=== PATIENT | male | born 1995 ===

== ENCOUNTER 2017-10-28 15:50 | Observation (INO) | payer OTHER ==
--- NOTE | 2017-10-28 16:52 | C.PDOC ---
History Of Present Illness 21 y/o male c/o throat pain, change in voice, fever, difficulty swallowing x 1 day. HPI: Influenza Time Seen by Provider: 10/28/17 16:45 Chief Complaint: ENT Problem History Per: Patient Exam Limitations: no limitations Onset/Duration Of Symptoms: Days (1) Symptoms include: fever, sore throat. denies: difficulty breathing Sick Contacts (Context): None Past Medical History Reviewed: Historical Data, Nursing Documentation, Vital Signs Vital Signs: Last Vital Signs Temp 100.8 F H 10/28/17 16:25 Pulse 116 H 10/28/17 16:25 Resp 18 10/28/17 16:25 BP 128/71 10/28/17 16:25 Pulse Ox 100 10/28/17 16:25 - Medical History PMH: No Chronic Diseases Family History: States: Unknown Family Hx - Social History Hx Alcohol Use: No Hx Substance Use: No - Immunization History Hx Tetanus Toxoid Vaccination: No Hx Influenza Vaccination: No Hx Pneumococcal Vaccination: No Review Of Systems Constitutional: Positive for: Fever, Chills, Other (myalgia) ENT: Positive for: Throat Pain. Negative for: Ear Pain, Nose Discharge Respiratory: Negative for: Cough Gastrointestinal: Negative for: Nausea, Vomiting, Abdominal Pain Physical Exam - Physical Exam Appears: Non-toxic, Other (uncomfortable) Skin: Warm, Dry Head: Atraumatic, Normacephalic Eye(s): bilateral: Normal Inspection Nose: No Discharge Oral Mucosa: Moist Tongue: Normal Appearing Lips: Normal Appearing Throat: Erythema, No Exudate, Other (left tonsil markedly enlarged, no exudate noted, ?lpta, uvula midline. ) Neck: No Trachea Deviated, Supple Lymphatic: Adenopathy (left tender submandibular nodes. ) Cardiovascular: Rhythm Regular, No Murmur Respiratory: No Decreased Breath Sounds, No Wheezing Medical Decision Making Medical Decision Making: sore throat, fever, change in voice, left enlarged tonsils- plan: labs, ivf, antipyetic, decadron. ct scan neck. rapiid strep 830 pm +tonsillitis on ct scan, pt feeling somewhat better, left tonsil still touching uvula, pt still with ot potasto voice. discussed with Dr Montes, requesting admit to medicine. Discussed with Dr Amin, will put on his service. - Laboratory Results Result Diagrams: 10/28/17 17:51 10/28/17 17:51 - ECG O2 Sat by Pulse Oximetry: 100 Disposition Discussed With DrIlana: Jak Amin - Disposition Disposition Time: 20:46 Condition: STABLE Forms: [facility] (Somali) - Clinical Impression Clinical Impression: Tonsillitis with exudate
[2017-10-28] MEDS ORDERED: Sodium Chloride 0.9% 1,000 ML IV ONE (17:22)
[2017-10-28] MEDS ORDERED: Dexamethasone 4 mg/1 ml ONE (17:28)
[2017-10-28] MEDS ORDERED: Sodium Chloride 0.9% 1,000 ML ONE (17:29)
[2017-10-28 17:55] LABS: BASO # 0.1 K/uL (0.0-0.2); BASO % 0.5 % (0.0-2.0); EOS % 0.1 % (0.0-4.0); HEMOGLOBIN 14.5 g/dL (12.0-18.0); LYMPH # 1.5 K/uL (1.0-4.3); LYMPH % 7.5 % (20.0-40.0); MEAN CELL VOLUME 81.8 fL (80.0-94.0); MEAN CORPUSCULAR HEMOGLOBIN 28.4 pg (27.0-31.0); MEAN CORPUSCULAR HGB CONC 34.7 g/dL (33.0-37.0); MEAN PLATELET VOLUME 7.7 fL (7.2-11.7); MONO # 1.2 K/uL (0.0-0.8); MONO % 6.2 % (0.0-10.0); NEUT # 16.9 K/uL (1.8-7.0); NEUT % 85.7 % (50.0-75.0); PLATELET COUNT 259 K/uL (130-400); RBC 5.11 Mil/uL (4.40-5.90); RED CELL DISTRIBUTION WIDTH 13.6 % (11.5-14.5); WHITE BLOOD COUNT 19.7 K/uL (4.8-10.8)
[2017-10-28 18:06] LABS: ALBUMIN 4.5 g/dL (3.5-5.0); ALT/SGPT 32 U/L (21-72); AST/SGOT 19 U/L (17-59); BLOOD UREA NITROGEN 9 mg/dL (9-20); CALCIUM 9.7 mg/dl (8.6-10.4); GFR AFRICAN-AMERICAN > 60; GFR NON-AFRICAN AMERICAN > 60
[2017-10-28] MEDS ORDERED: Iodixanol 320 MG/ML 100 ML BOTTLE IV ONE (18:40)
[2017-10-28] MEDS ORDERED: Clindamycin 600mg/50ml NS 600 MG/50 ML BAG IVPB ONE (19:03)
[2017-10-28 19:43] LABS: BANDS 3 % (0-2); LYMPHOCYTE 12 % (20-40); MONOCYTE 5 % (0-10); NEUTROPHIL 80 % (50-75); PLATELET ESTIMATE NORMAL (NORMAL); TOTAL CELLS COUNTED 100
--- NOTE | 2017-10-28 19:52 | CT ---
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 All CT scans at this facility use one or more dose reduction techniques, viz.: automated exposure control; ma/kV adjustment per patient size (including targeted exams where dose is matched to indication; i.e. head); or iterative reconstruction technique. Coronal and sagittal reformatted images were created and reviewed. CONTRAST: 100 mL of visipaque 320 administered intravenously. COMPARISON: No relevant prior studies available. FINDINGS: NASOPHARYNX: Mild, symmetric enlargement of the adenoidal/nasopharyngeal tonsils. This could be due to tonsillitis or tonsillar hypertrophy. No evidence of a peritonsillar abscess. OROPHARYNX: Best seen on image 46 of series 601, there is enlargement and heterogeneous enhancement of the left palatine tonsil, highly suspicious for tonsillitis. This causes swelling of the left parapharyngeal soft tissues associated with mild narrowing and rightward displacement of the oropharyngeal airway. There is no focal, measurable collection seen to suggest a focal peritonsillar abscess. HYPOPHARYNX: Demonstrates mild left-sided soft tissue swelling, most likely representing extension of edema inferiorly from the left palatine tonsillitis. This effaces the left piriform sinus. The swelling abuts the epiglottis on the left, however, there is no swelling of the epiglottis itself to suggest acute epiglottitis. LARYNX: No acute abnormality of the vocal cords identified. TRACHEA: Visualized portions of the trachea appear patent. RETROPHARYNGEAL SPACE: No evidence of prevertebral/retropharyngeal fluid or fluid collection. SUBMANDIBULAR/PAROTID GLANDS: No acute abnormality of the submandibular or parotid glands identified. THYROID: No acute abnormality of the thyroid gland identified. BONES/JOINTS: No acute fractures or other acute bony abnormality noted. SOFT TISSUES: . No findings to suggest significant cellulitis of the soft tissues. No evidence of soft tissue gas. VASCULATURE: No acute abnormality of the major neck vessels seen. LYMPH NODES: Multiple small lymph nodes seen in the left neck, mainly in the jugulodigastric chain region, none appearing pathologically enlarged. These are most likely reactive in etiology, secondary to the suspected left-sided tonsillitis. No evidence of diffuse pathologic lymphadenopathy. ESOPHAGUS: No acute abnormality of the upper esophagus identified. LUNG APICES: Lung apices appear clear. IMPRESSION: - Enlargement of the left palatine tonsils, suspicious for tonsillitis. The swelling from the tonsillitis extends inferiorly into the left hypopharynx. No evidence of peritonsillar abscess or epiglottitis. - Enlarged adenoidal/nasopharyngeal tonsils. This could be due to tonsillitis or tonsillar hypertrophy. - See above for remaining findings.
--- NOTE | 2017-10-28 22:28 | CP.PCM.HP ---
<Cesar Solo Dia - Last Filed: 10/28/17 23:33> History of Present Illness - History of Present Illness History of Present Illness: CC: throat pain and swelling HPI: Patient is a 21 year old male who presents for throat pain, swelling, and difficulty breathing. He states that last night, he began to feel a little bit of pain and swelling in his throat, and felt that he was having trouble swallowing his saliva. He tried drinking tea and using [place] cough drops without improvement; he only felt that the saliva was staying in his throat. He went to sleep and woke up today feeling sweaty, with worse throat pain and swelling, lots of phlegm in his throat, the inability to swallow, difficulty speaking, and difficulty swallowing. He describes the feeling of swallowing as trying to put a "pebble in a straw." Patient's mother at bedside states that patient's voice did not sound normal. Throat pain is described as left sided, throbbing/burning, constant, exacerbated by swallowing, 11/10 at worst and 7/10 right now. He denies any relieving factors except the medicine given in the ED. Patient has not eaten solid food since these symptoms started. He is able to tolerate water/juice but feels that the liquid is slow to go down and he has pain when he swallows. He denies fever (did not check temperature at home), chills, cough, the sensation of oozing in his throat, sick contacts. Patient has no history of similar symptoms. Patient had a mild headache earlier today that resolved. Otherwise, patient denies dizziness, lightheadedness, changes in vision/hearing, chest pain, palpitations, abdominal pain, nausea, vomiting, diarrhea, constipation (last BM this morning, nonbloody and nonmelanotic), dysuria, urinary frequency, leg pain , leg swelling, back pain, rashes, bruises, bleeding, recent travel, weight changes, appetite changes. 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 absent: Chills, Fever - EENT Eyes: absent: Change in Vision Ears: absent: Decreased Hearing, Ear Discharge, Ear Pain Nose/Mouth/Throat: Change in Voice, Dysphagia, Sore Throat, Throat Swelling - Cardiovascular Cardiovascular: absent: Chest Pain, Leg Edema, Palpitations, Pedal Edema - Respiratory Respiratory: Dyspnea. absent: Cough - Gastrointestinal Gastrointestinal: absent: Abdominal Pain, Change in Stool Character, Constipation, Diarrhea, Hematochezia, Loose Stools, Melena - Genitourinary Genitourinary: absent: Difficulty Urinating, Dysuria, Urinary Frequency - Musculoskeletal Musculoskeletal: absent: Muscle Weakness, Myalgias - Integumentary Integumentary: absent: Rash, Unusual Bruising - Neurological Neurological: Headaches. absent: Dizziness - Psychiatric Psychiatric: absent: Behavioral Changes - Endocrine Endocrine: absent: Fatigue, Palpitations - Hematologic/Lymphatic Hematologic: absent: Easy Bleeding, Easy Bruising Past Patient History - Past Social History Smoking Status: Never Smoked - PSYCHIATRIC Hx Substance Use: No - SURGICAL HISTORY Hx Surgeries: No Meds Allergies/Adverse Reactions: Allergies Allergy/AdvReac Type Severity Reaction Status Date / Time No Known Allergies Allergy Unverified 10/28/17 16:28 Physical Exam - Constitutional Appears: Well, No Acute Distress Additional comments: Speaking in complete sentences - Head Exam Head Exam: ATRAUMATIC, NORMAL INSPECTION - Eye Exam Eye Exam: EOMI Pupil Exam: PERRL - ENT Exam ENT Exam: Mucous Membranes Moist Additional comments: Unable to visualize bilateral TMs due to cerumen Nasal septum and nasal turbinates appeared normal, no purulent nasal discharge noted No tenderness to maxillary and frontal sinus palpation Dentition normal Tongue midline; Uvula deviated slightly to the right, with no purulence observed ; Mildly enlarged left tonsil with (+) minimal erythema - no exudate noted Tender lymph node at angle of the jaw - Neck Exam Neck exam: Positive for: Tenderness Additional comments: Left sided cervical tenderness - Respiratory Exam Respiratory Exam: Clear to Auscultation Bilateral, NORMAL BREATHING PATTERN. absent: Rales, Rhonchi, Wheezes - Cardiovascular Exam Cardiovascular Exam: REGULAR RHYTHM, RRR, +S1, +S2. absent: JVD, Systolic Murmur - GI/Abdominal Exam GI & Abdominal Exam: Normal Bowel Sounds, Soft. absent: Distended, Guarding, Rebound, Tenderness - Extremities Exam Extremities exam: Positive for: full ROM, normal inspection. Negative for: pedal edema - Neurological Exam Neurological exam: Oriented x3 Additional comments: Facial symmetry, expression intact (CN 7) Facial sensation intact intact (CN 5) - Skin Skin Exam: Intact, Normal Color, Warm Results - Vital Signs Recent Vital Signs: Last Vital Signs Temp 98.7 F 10/28/17 19:47 Pulse 85 10/28/17 19:47 Resp 18 10/28/17 19:47 BP 119/75 10/28/17 19:47 Pulse Ox 100 10/28/17 20:46 - Labs Result Diagrams: 10/28/17 17:51 10/28/17 17:51 Labs: Laboratory Results - last 24 hr 10/28/17 10/28/17 10/28/17 17:51 17:51 17:54 WBC 19.7 H RBC 5.11 Hgb 14.5 Hct 41.8 MCV 81.8 MCH 28.4 MCHC 34.7 RDW 13.6 Plt Count 259 MPV 7.7 Neut % (Auto) 85.7 H Lymph % (Auto) 7.5 L [place] % (Auto) 6.2 Eos % (Auto) 0.1 Baso % (Auto) 0.5 Neut # (Auto) 16.9 H Lymph # (Auto) 1.5 [place] # (Auto) 1.2 H Eos # (Auto) 0.0 Baso # (Auto) 0.1 Neutrophils % (Manual) 80 H Band Neutrophils % 3 H Lymphocytes % (Manual) 12 L Monocytes % (Manual) 5 Platelet Estimate Normal Sodium 139 Potassium 3.7 Chloride 100 Carbon Dioxide 27 Anion Gap 17 BUN 9 Creatinine 1.0 Est GFR ( Amer) > 60 Est GFR (Non-Af Amer) > 60 Random Glucose 145 H Calcium 9.7 Total Bilirubin 1.3 AST 19 ALT 32 Alkaline Phosphatase 69 Total Protein 9.0 H Albumin 4.5 Globulin 4.5 H Albumin/Globulin Ratio 1.0 Grp A Beta Strep Ag Negative Assessment & Plan (1) Acute tonsillitis Assessment and Plan: Meets Sepsis criteria - on admission: Febrile, WBC ELEVATED, HR ELEVATED Bands ELEVATED, F/U Lactate ENT consult, Dr Montes * Dr Montes to see patient in AM * Will keep pt NPO for possible OR tmr Monospot test NEGATIVE Group A Beta Strep Ag NEGATIVE F/U HSV IgM, F/U HIV Screening F/U Blood Cx, F/U Throat Culture Medicine: Clindamycin 600mg IV Q8H Decadron 10mg Inj ONCE given for difficulty breathing Ibuprofen 400mg Oral Susp Q6H PRN for pain Cepacol 1loz BID PRN for sore throat Imaging: CT Neck Soft Tissue W/Contrast: "Enlargement of the left palatine tonsils, suspicious for tonsillitis. The swelling from the tonsillitis extends inferiorly into the left hypopharynx. No evidence of peritonsillar abscess or epiglottitis. Enlarged adenoidal/nasopharyngeal tonsils. This could be due to tonsillitis or tonsillar hypertrophy. F/U CXR and EKG (ordered for pre-op for possible OR with Dr Montes) Status: Acute Priority: High (2) Prophylactic antibiotic Assessment and Plan: NO anticoagulation for possible OR/Procedure tmr GI prophylaxis not indicated SCDs not indicated NPO Status: Acute <Jak Amin - Last Filed: 10/29/17 06:36> Results - Vital Signs Recent Vital Signs: Last Vital Signs Temp 98.3 F 10/29/17 00:30 Pulse 66 10/29/17 00:30 Resp 20 10/29/17 00:30 BP 142/78 10/29/17 00:30 Pulse Ox 99 10/29/17 00:30 - Labs Result Diagrams: 10/28/17 17:51 10/28/17 17:51 Labs: Laboratory Results - last 24 hr 10/28/17 10/28/17 10/28/17 17:51 17:51 17:54 WBC 19.7 H RBC 5.11 Hgb 14.5 Hct 41.8 MCV 81.8 MCH 28.4 MCHC 34.7 RDW 13.6 Plt Count 259 MPV 7.7 Neut % (Auto) 85.7 H Lymph % (Auto) 7.5 L [place] % (Auto) 6.2 Eos % (Auto) 0.1 Baso % (Auto) 0.5 Neut # (Auto) 16.9 H Lymph # (Auto) 1.5 [place] # (Auto) 1.2 H Eos # (Auto) 0.0 Baso # (Auto) 0.1 Neutrophils % (Manual) 80 H Band Neutrophils % 3 H Lymphocytes % (Manual) 12 L Monocytes % (Manual) 5 Platelet Estimate Normal Sodium 139 Potassium 3.7 Chloride 100 Carbon Dioxide 27 Anion Gap 17 BUN 9 Creatinine 1.0 Est GFR ( Amer) > 60 Est GFR (Non-Af Amer) > 60 Random Glucose 145 H Calcium 9.7 Total Bilirubin 1.3 AST 19 ALT 32 Alkaline Phosphatase 69 Total Protein 9.0 H Albumin 4.5 Globulin 4.5 H Albumin/Globulin Ratio 1.0 HIV 1&2 Antibody Screen Infectious [place] Assay Grp A Beta Strep Ag Negative 10/28/17 10/28/17 22:17 22:17 WBC RBC Hgb Hct MCV MCH MCHC RDW Plt Count MPV Neut % (Auto) Lymph % (Auto) [place] % (Auto) Eos % (Auto) Baso % (Auto) Neut # (Auto) Lymph # (Auto) [place] # (Auto) Eos # (Auto) Baso # (Auto) Neutrophils % (Manual) Band Neutrophils % Lymphocytes % (Manual) Monocytes % (Manual) Platelet Estimate Sodium Potassium Chloride Carbon Dioxide Anion Gap BUN Creatinine Est GFR ( Amer) Est GFR (Non-Af Amer) Random Glucose Calcium Total Bilirubin AST ALT Alkaline Phosphatase Total Protein Albumin Globulin Albumin/Globulin Ratio HIV 1&2 Antibody Screen Negative Infectious [place] Assay Negative Grp A Beta Strep Ag Assessment & Plan - Date & Time Date: 10/29/17 (I have seen and examined the patient. I agree with the findings and plan of care as documented by Dr. Solo. Patient with acute tonsillitis. Some complaints of difficulty breathing. Decadron given in ED with some improvement. Consult to ENT. Called by ED. Clindamycin. NSAIDs. Monitor for acute changes especially with airway. ) Time: 06:34 Attending/Attestation - Attestation I have personally seen and examined this patient.: Yes I have fully participated in the care of the patient.: Yes I have reviewed all pertinent clinical information: Yes
[2017-10-28] MEDS: Benzocaine/Menthol (Cepacol) Lozenge MT PRN (22:40)
[2017-10-29 00:41] VITALS: RESP 20
[2017-10-29] MEDS: Clindamycin 600mg/50ml NS 600 MG/50 ML BAG IVPB SCH ×2 (05:46→13:07)
[2017-10-29 06:58] LABS: ALBUMIN 4.3 g/dL (3.5-5.0); ALT/SGPT 25 U/L (21-72); AST/SGOT 18 U/L (17-59); BLOOD UREA NITROGEN 12 mg/dL (9-20); CALCIUM 9.6 mg/dl (8.6-10.4); GFR AFRICAN-AMERICAN > 60; GFR NON-AFRICAN AMERICAN > 60
[2017-10-29 07:15] LABS: BASO % 0.1 % (0.0-2.0); HEMOGLOBIN 14.7 g/dL (12.0-18.0); LYMPH # 1.7 K/uL (1.0-4.3); LYMPH % 7.4 % (20.0-40.0); MEAN CELL VOLUME 83.4 fL (80.0-94.0); MEAN CORPUSCULAR HEMOGLOBIN 28.3 pg (27.0-31.0); MEAN PLATELET VOLUME 8.1 fL (7.2-11.7); MONO # 1.3 K/uL (0.0-0.8); MONO % 5.6 % (0.0-10.0); NEUT # 19.8 K/uL (1.8-7.0); NEUT % 86.9 % (50.0-75.0); PLATELET COUNT 253 K/uL (130-400); RBC 5.18 Mil/uL (4.40-5.90); WHITE BLOOD COUNT 22.7 K/uL (4.8-10.8)
--- NOTE | 2017-10-29 07:46 | RAD ---
Chest x-ray single frontal view History: Preoperative evaluation. Comparison: None available. Findings: No focal infiltrate or effusion. Heart size within normal limits. Impression: No focal infiltrate or effusion.
[2017-10-29 07:56] VITALS: BP 135/79; PULSE 75; TEMP 97.9; O2SAT 98
[2017-10-29] MEDS ORDERED: Lidocaine 1%/Epinephrine 1:100000 30 ml vial IJ ONE (08:00)
[2017-10-29 09:06] LABS: BANDS 3 % (0-2); LYMPHOCYTE 2 % (20-40); MONOCYTE 8 % (0-10); NEUTROPHIL 87 % (50-75); PLATELET ESTIMATE NORMAL (NORMAL); TOTAL CELLS COUNTED 100
[2017-10-29] MEDS: Benzocaine/Menthol (Cepacol) Lozenge MT PRN (13:10)
--- NOTE | 2017-10-29 13:16 | CP.PCM.DIS ---
<Jackie Yu - Last Filed: 10/29/17 13:47> Provider - Provider Date of Admission: 10/28/17 20:46 Attending physician: Jak Amin MD Time Spent in preparation of Discharge (in minutes): 55 Hospital Course - Lab Results Lab Results: Micro Results 10/28/17 17:54 Throat Group A Strep Throat Culture - Final NO BETA STREP GROUP A ISOLATED. Most Recent Lab Values WBC 22.7 K/uL (4.8-10.8) H 10/29/17 06:18 RBC 5.18 Mil/uL (4.40-5.90) 10/29/17 06:18 Hgb 14.7 g/dL (12.0-18.0) 10/29/17 06:18 Hct 43.2 % (35.0-51.0) 10/29/17 06:18 MCV 83.4 fL (80.0-94.0) 10/29/17 06:18 MCH 28.3 pg (27.0-31.0) 10/29/17 06:18 MCHC 34.0 g/dL (33.0-37.0) 10/29/17 06:18 RDW 14.0 % (11.5-14.5) 10/29/17 06:18 Plt Count 253 K/uL (130-400) 10/29/17 06:18 MPV 8.1 fL (7.2-11.7) 10/29/17 06:18 Neut % (Auto) 86.9 % (50.0-75.0) H 10/29/17 06:18 Lymph % (Auto) 7.4 % (20.0-40.0) L 10/29/17 06:18 [place] % (Auto) 5.6 % (0.0-10.0) 10/29/17 06:18 Eos % (Auto) 0.0 % (0.0-4.0) 10/29/17 06:18 Baso % (Auto) 0.1 % (0.0-2.0) 10/29/17 06:18 Neut # (Auto) 19.8 K/uL (1.8-7.0) H 10/29/17 06:18 Lymph # (Auto) 1.7 K/uL (1.0-4.3) 10/29/17 06:18 [place] # (Auto) 1.3 K/uL (0.0-0.8) H 10/29/17 06:18 Eos # (Auto) 0.0 K/uL (0.0-0.7) 10/29/17 06:18 Baso # (Auto) 0.0 K/uL (0.0-0.2) 10/29/17 06:18 Neutrophils % (Manual) 87 % (50-75) H 10/29/17 06:18 Band Neutrophils % 3 % (0-2) H 10/29/17 06:18 Lymphocytes % (Manual) 2 % (20-40) L 10/29/17 06:18 Monocytes % (Manual) 8 % (0-10) 10/29/17 06:18 Platelet Estimate Normal (NORMAL) 10/29/17 06:18 RBC Morphology Normal 10/29/17 06:18 Sodium 145 mmol/L (132-148) 10/29/17 06:18 Potassium 4.1 mmol/L (3.6-5.2) 10/29/17 06:18 Chloride 103 mmol/L (98-107) 10/29/17 06:18 Carbon Dioxide 28 mmol/L (22-30) 10/29/17 06:18 Anion Gap 18 (10-20) 10/29/17 06:18 BUN 12 mg/dL (9-20) 10/29/17 06:18 Creatinine 0.8 mg/dL (0.8-1.5) 10/29/17 06:18 Est GFR ( Amer) > 60 10/29/17 06:18 Est GFR (Non-Af Amer) > 60 10/29/17 06:18 Random Glucose 134 mg/dL (75-110) H 10/29/17 06:18 Lactic Acid 1.0 mmol/L (0.7-2.1) 10/29/17 06:18 Calcium 9.6 mg/dl (8.6-10.4) 10/29/17 06:18 Total Bilirubin 1.0 mg/dL (0.2-1.3) 10/29/17 06:18 AST 18 U/L (17-59) 10/29/17 06:18 ALT 25 U/L (21-72) 10/29/17 06:18 Alkaline Phosphatase 68 U/L (38-126) 10/29/17 06:18 Total Protein 8.9 g/dL (6.3-8.3) H 10/29/17 06:18 Albumin 4.3 g/dL (3.5-5.0) 10/29/17 06:18 Globulin 4.5 gm/dL (2.2-3.9) H 10/29/17 06:18 Albumin/Globulin Ratio 1.0 (1.0-2.1) 10/29/17 06:18 HIV 1&2 Antibody Screen Negative (NEGATIVE) 10/28/17 22:17 Infectious [place] Assay Negative (NEGATIVE) 10/28/17 22:17 Grp A Beta Strep Ag Negative (NEGATIVE) 10/28/17 17:54 - Hospital Course Hospital Course: Upon Admission: CC: throat pain and swelling HPI: Patient is a 21 year old male who presents for throat pain, swelling, and difficulty breathing. He states that last night, he began to feel a little bit of pain and swelling in his throat, and felt that he was having trouble swallowing his saliva. He tried drinking tea and using [place] cough drops without improvement; he only felt that the saliva was staying in his throat. He went to sleep and woke up today feeling sweaty, with worse throat pain and swelling, lots of phlegm in his throat, the inability to swallow, difficulty speaking, and difficulty swallowing. He describes the feeling of swallowing as trying to put a "pebble in a straw." Patient's mother at bedside states that patient's voice did not sound normal. Throat pain is described as left sided, throbbing/burning, constant, exacerbated by swallowing, 11/10 at worst and 7/10 right now. He denies any relieving factors except the medicine given in the ED. Patient has not eaten solid food since these symptoms started. He is able to tolerate water/juice but feels that the liquid is slow to go down and he has pain when he swallows. He denies fever (did not check temperature at home), chills, cough, the sensation of oozing in his throat, sick contacts. Patient has no history of similar symptoms. Patient had a mild headache earlier today that resolved. Otherwise, patient denies dizziness, lightheadedness, changes in vision/hearing, chest pain, palpitations, abdominal pain, nausea, vomiting, diarrhea, constipation (last BM this morning, nonbloody and nonmelanotic), dysuria, urinary frequency, leg pain , leg swelling, back pain, rashes, bruises, bleeding, recent travel, weight changes, appetite changes. ED Course: Clindamycin 600mg IV ONCE, Decadron 10mg IV ONCE, Motrin 600mg PO ONCE, 1L NS Bolus, Blood Cx, Thoat Cx PMH: denies PSH: denies Medications: denies Rx, OTC, supplements, vitamins Allergies: denies Family History: Mother-age 41 with no medical problems; Father-age 41 with no medical problems; siblings-healthy Social History: lives with his mom in [place]; works as a master cook at a restaurant; smokes 1 cigar every other day x 8-9 years; denies current/prior cigarette use; drinks "1 cup" of [place] every 2-3 months; smokes marijuana 2- 3x/day; denies other recreational drug use Code status: full code No advance directive In the event that he cannot make his own health care decisions, patient wants his cousin Domonique Turner (a physician) to make his healthcare decisions for him ([phone]) Throughout Hospital Course: (1) Acute tonsillitis Assessment and Plan: Meets Sepsis criteria - on admission: Febrile, WBC ELEVATED, HR ELEVATED Bands ELEVATED, lactate - low ENT consult, Dr Montes * Dr Montes to see patient in AM - no intervention - ok to DC WITH PO ABX Bactrim Monospot test NEGATIVE Group A Beta Strep Ag NEGATIVE HIV Screening- negative Throat Culture - no growth Medicine: Clindamycin 600mg IV Q8H Decadron 10mg Inj ONCE given for difficulty breathing Ibuprofen 400mg Oral Susp Q6H PRN for pain Cepacol 1loz BID PRN for sore throat Imaging: CT Neck Soft Tissue W/Contrast: "Enlargement of the left palatine tonsils, suspicious for tonsillitis. The swelling from the tonsillitis extends inferiorly into the left hypopharynx. No evidence of peritonsillar abscess or epiglottitis. Enlarged adenoidal/nasopharyngeal tonsils. This could be due to tonsillitis or tonsillar hypertrophy. CXR: No focal infiltrate or effusion. This is a short summary of the patient's hospital course. Please review EMR for full record. Discharge Exam - Head Exam Head Exam: ATRAUMATIC, NORMAL INSPECTION, NORMOCEPHALIC - Eye Exam Eye Exam: EOMI, Normal appearance, PERRL - ENT Exam ENT Exam: Mucous Membranes Moist, Normal Exam - Neck Exam Additional comments: NO LAD, TTP, - Respiratory Exam Respiratory Exam: Clear to PA & Lateral, NORMAL BREATHING PATTERN. absent: Decreased Breath Sounds - Cardiovascular Exam Cardiovascular Exam: REGULAR RHYTHM - GI/Abdominal Exam GI & Abdominal Exam: Normal Bowel Sounds, Soft, Unremarkable. absent: Distended - Rectal Exam Rectal Exam: Deferred - Extremities Exam Extremities exam: normal inspection, pedal pulses present - Neurological Exam Neurological exam: Alert, CN II-XII Intact, Oriented x3 - Psychiatric Exam Psychiatric exam: Normal Affect, Normal Mood - Skin Skin Exam: Dry, Intact, Normal Color, Warm Discharge Plan - Discharge Medications Prescriptions: Sulfamethoxazole/Trimethoprim [Bactrim DS 800 mg-160 mg] 1 tab PO BID #20 tab - Follow Up Plan Condition: STABLE Disposition: HOME/ ROUTINE Instructions: Sore Throat, Adult (DC), Sulfamethoxazole and Trimethoprim Additional Instructions: Please continue to the Bactrim 1 tab every 12 hours for 10 days. Please take an over the counter probiotics for 40 days to prevent any stomach issues. Please establish yourself in the [facility] for routine health care. Please return to the ED if your symptoms worsen or return. Fever, chills, shortness of breath. Referrals: [facility] at [facility] [Outside] Louis Montes MD [Staff Provider] - <Baron Jackson - Last Filed: 10/30/17 19:24> Provider - Provider Date of Admission: 10/28/17 20:46 Attending physician: Jak Amin MD Hospital Course - Lab Results Lab Results: Micro Results 10/28/17 17:55 Blood Blood Culture - Preliminary NO GROWTH AFTER 24 HOURS 10/28/17 17:40 Blood Blood Culture - Preliminary NO GROWTH AFTER 24 HOURS 10/28/17 17:54 Throat Group A Strep Throat Culture - Final NO BETA STREP GROUP A ISOLATED. Most Recent Lab Values WBC 22.7 K/uL (4.8-10.8) H 10/29/17 06:18 RBC 5.18 Mil/uL (4.40-5.90) 10/29/17 06:18 Hgb 14.7 g/dL (12.0-18.0) 10/29/17 06:18 Hct 43.2 % (35.0-51.0) 10/29/17 06:18 MCV 83.4 fL (80.0-94.0) 10/29/17 06:18 MCH 28.3 pg (27.0-31.0) 10/29/17 06:18 MCHC 34.0 g/dL (33.0-37.0) 10/29/17 06:18 RDW 14.0 % (11.5-14.5) 10/29/17 06:18 Plt Count 253 K/uL (130-400) 10/29/17 06:18 MPV 8.1 fL (7.2-11.7) 10/29/17 06:18 Neut % (Auto) 86.9 % (50.0-75.0) H 10/29/17 06:18 Lymph % (Auto) 7.4 % (20.0-40.0) L 10/29/17 06:18 [place] % (Auto) 5.6 % (0.0-10.0) 10/29/17 06:18 Eos % (Auto) 0.0 % (0.0-4.0) 10/29/17:18 Baso % (Auto) 0.1 % (0.0-2.0) 10/29/17 06:18 Neut # (Auto) 19.8 K/uL (1.8-7.0) H 10/29/17 06:18 Lymph # (Auto) 1.7 K/uL (1.0-4.3) 10/29/17 06:18 [place] # (Auto) 1.3 K/uL (0.0-0.8) H 10/29/17 06:18 Eos # (Auto) 0.0 K/uL (0.0-0.7) 10/29/17 06:18 Baso # (Auto) 0.0 K/uL (0.0-0.2) 10/29/17 06:18 Neutrophils % (Manual) 87 % (50-75) H 10/29/17 06:18 Band Neutrophils % 3 % (0-2) H 10/29/17 06:18 Lymphocytes % (Manual) 2 % (20-40) L 10/29/17 06:18 Monocytes % (Manual) 8 % (0-10) 10/29/17 06:18 Platelet Estimate Normal (NORMAL) 10/29/17 06:18 RBC Morphology Normal 10/29/17 06:18 Sodium 145 mmol/L (132-148) 10/29/17 06:18 Potassium 4.1 mmol/L (3.6-5.2) 10/29/17 06:18 Chloride 103 mmol/L (98-107) 10/29/17 06:18 Carbon Dioxide 28 mmol/L (22-30) 10/29/17 06:18 Anion Gap 18 (10-20) 10/29/17 06:18 BUN 12 mg/dL (9-20) 10/29/17 06:18 Creatinine 0.8 mg/dL (0.8-1.5) 10/29/17 06:18 Est GFR ( Amer) > 60 10/29/17 06:18 Est GFR (Non-Af Amer) > 60 10/29/17 06:18 Random Glucose 134 mg/dL (75-110) H 10/29/17 06:18 Lactic Acid 1.0 mmol/L (0.7-2.1) 10/29/17 06:18 Calcium 9.6 mg/dl (8.6-10.4) 10/29/17 06:18 Total Bilirubin 1.0 mg/dL (0.2-1.3) 10/29/17 06:18 AST 18 U/L (17-59) 10/29/17 06:18 ALT 25 U/L (21-72) 10/29/17 06:18 Alkaline Phosphatase 68 U/L (38-126) 10/29/17 06:18 Total Protein 8.9 g/dL (6.3-8.3) H 10/29/17 06:18 Albumin 4.3 g/dL (3.5-5.0) 10/29/17 06:18 Globulin 4.5 gm/dL (2.2-3.9) H 10/29/17 06:18 Albumin/Globulin Ratio 1.0 (1.0-2.1) 10/29/17 06:18 HIV 1&2 Antibody Screen Negative (NEGATIVE) 10/28/17 22:17 Infectious [place] Assay Negative (NEGATIVE) 10/28/17 22:17 Grp A Beta Strep Ag Negative (NEGATIVE) 10/28/17 17:54 Attending/Attestation - Attestation I have personally seen and examined this patient.: Yes I have fully participated in the care of the patient.: Yes I have reviewed all pertinent clinical information, including history, physical exam and plan: Yes Notes (Text): Seen and exmined I agree with the resident's documentation Plan discussed 10/30/17 19:24
--- NOTE | 2017-10-30 00:06 | CON ---
DATE: 10/29/2017 REASON FOR CONSULTATION: Left throat pain. REQUESTING PHYSICIAN: . HISTORY: This is a 21-year-old male with a 2-day history of left-sided throat pain which has been moderate to severe in intensity, constant. It was there for 2 days. The patient got steroids, and the patient's pain has decreased tremendously. The patient has very mild pain on the left side at this point. He is tolerating p.o. No shortness of breath. No hoarseness. PAST MEDICAL HISTORY: As noted in the chart by me. MEDICATIONS: As noted in the chart by me. ALLERGIES: NO KNOWN DRUG ALLERGIES PHYSICAL EXAMINATION: HEAD: Atraumatic and normocephalic. FACE: Good facial movements bilaterally. CONSTITUTIONAL: Well fed, well nourished. COMMUNICATION: Communicates well and appropriately. EXTERNAL NOSE AND EARS: No masses. No lesions. No erythema. No edema. INTERNAL NOSE: Deviated septum. No masses. No lesions. No erythema. No edema. ORAL CAVITY AND OROPHARYNX: No masses. No lesions. No erythema. No edema. LIPS AND GUMS: No masses. No lesions. No erythema. No edema. NECK: Supple. THYROID: No thyromegaly. No goiter. LYMPH NODES: No lymphadenopathy of the neck. CAT scan was reviewed by me, has revealed no abscesses. ASSESSMENT: 1. Infection of the tonsils, tonsillitis, severe, which is resolving. 2. Deviated septum. PLAN: The patient can be discharged home on p.o. antibiotics. Louis Montes MD
[2017-10-31] MEDS ORDERED: Pneumococcal 23-Valent Vaccine IM ONE (11:00)
[2017-10-31] MEDS ORDERED: Influenza Vaccine 60 mcg/0.5 mL SYR (4YR UP) IM ONE (11:00)
== END 2017-10-29 15:25 | disposition home or self-care (01) ==
LOC: C.ER 15:50 → C.9E 20:46 → C.6T 22:57
PROVIDERS: ADMIT Family Medicine; ATTEND Family Medicine
DX: J03.90 Acute tonsillitis, unspecified (principal); J35.1 Hypertrophy of tonsils; F12.90 Cannabis use, unspecified, uncomplicated; Z72.0 Tobacco use; J34.2 Deviated nasal septum
CPT/HCPCS: 36415; 70491; 71045; 80053; 83605; 85025; 86308; 86695; 86696; 86703; 87040; 87070; 87430; 96361; 96365; 96366; 96375; 99284; G0378; J1100; J7040; Q9967